=== PATIENT | male | born 1930 | race Caucasian/White ===

== ENCOUNTER → 2016-08-12 | Outpatient (CLI) | payer OTHER | LOC: BMCIMAGING 10:06 | PROVIDERS: ATTEND Neurological Surgery | DX: M99.73 Connective tissue and disc stenosis of intervertebral foramina of lumbar region (principal); S33.120A Subluxation of L2/L3 lumbar vertebra, initial encounter; S33.130A Subluxation of L3/L4 lumbar vertebra, initial encounter ==

== ENCOUNTER 2017-06-04 19:29 | Emergency (ER) | payer OTHER ==
--- NOTE | 2017-06-04 19:38 | EDPHY ---
H & P Time Seen by Provider: 06/04/17 19:37 HPI/ROS: HPI: This is an 86-year-old male presents with Chief Complaint: Left wrist laceration Location: Left wrist Quality: Laceration Duration: Prior to arrival Signs and Symptoms: + bleeding, no radiation, no numbness, no weakness, no tingling, no incontinence, no decreased range of motion, no swelling, no pain Timing: Acute Severity: Mild Context: Patient is right-hand dominant, reports that he was using an [employer] knife to cut open a box when he accidentally slipped and put the tip of the knife into his wrist. He reports that he felt mild pain but quickly resolved. He is more concerned as his blood was "oozing out." He applied a wash rag but is still continued to bleed. He takes baby aspirin daily. Denies any paresthesias/skin color changes/decreased range of motion. Modifying Factors: Direct pressure with transient relief Comment: ROS: see HPI Constitutional: No fever, no chills, no weight loss Eyes: No blurred vision Respiratory: No shortness of breath, no cough Cardiovascular: No chest pain Gastrointestinal: No nausea, no vomiting no diarrhea Genitourinary: No dysuria Extremities: No myalgias Neurologic: No weakness, no numbness Skin: No rashes Hematologic: No bruising, no bleeding MEDICAL/SURGICAL/SOCIAL HISTORY: Medical history: GERD, symptomatic bradycardia, Hernia, HTN Surgical history: Pacemaker, proctectomy Social history: CONSTITUTIONAL: Extremely pleasant elderly white male, awake and alert, no obvious distress HEENT: Atraumatic and normocephalic, PERRL, EOMI. Tympanic membranes clear. Oropharynx clear, no exudate and moist pink mucosa. Airway patent. No lymphadenopathy. No meningismus. Cardiovascular: Normal S1/S2, regular rate, regular rhythm, without murmur rub or gallop. PULMONARY/CHEST: Symmetrical and nontender. Clear to auscultation bilaterally. Good air movement. No accessory muscle usage. ABDOMEN: Soft, nondistended, nontender, no rebound, no guarding, no peritoneal signs, no masses or organomegaly. No CVAT. EXTREMITIES: 2/2 radial pulses, strength 5/5, left WRIST: Extension to 70, flexion to 80, radial deviation to 20 degree, ulnar deviation to 30, no scaphoid tenderness, no tenderness over ulnar styloid, no tenderness over radial styloid, 1/8 cm stab incision noted near the radial styloid; capillary/ ancillary veins present from the radial vein surrounding the laceration. Laceration is simple, superficial, linear. no deformities, no clubbing, no cyanosis or edema. NEUROLOGICAL: no focal neuro deficits. GCS 15. SKIN: Warm and dry, no erythema. no rash. Good capillary refill. Source: Patient, Family () Exam Limitations: No limitations - Medical/Surgical History Hx Asthma: No Hx Chronic Respiratory Disease: No Hx Diabetes: Yes Hx Cardiac Disease: Yes Hx Renal Disease: No Hx Cirrhosis: No Hx Alcoholism: No Hx HIV/AIDS: No Hx Splenectomy or Spleen Trauma: No Other PMH: GERD, PACER-bradycardia, Prostectomy, Hernia, HTN - Social History Smoking Status: Never smoked Constitutional: Initial Vital Signs Temperature (C) 37.0 C 06/04/17 19:49 Heart Rate 89 06/04/17 19:49 Respiratory Rate 18 06/04/17 19:49 Blood Pressure 162/90 H 06/04/17 19:49 O2 Sat (%) 95 06/04/17 19:49 O2 Delivery Mode Room Air Allergies/Adverse Reactions: No Known Allergies Allergy (Unverified 06/04/17 19:51) Home Medications: Medication Instructions Recorded Aspirin [Aspirin 81mg (*)] 81 mg PO DAILY #0 tab 11/18/13 Desloratadine [Clarinex] 5 mg PO HS 11/18/13 Doxycycline Hyclate [Vibramycin 100 mg PO Q3D 11/18/13 100 MG (*)] Famotidine [Pepcid 20 MG (*)] 20 mg PO BID #0 tab 11/18/13 Levothyroxine [Synthroid 50 mcg 50 mcg PO DAILY 11/18/13 (*)] Mometasone 220Mcg Inhaler [Asmanex 1 inh IH BID 11/18/13 Inh (*)] Simvastatin [Zocor 20 mg] 20 mg PO HS 11/18/13 Triamcinolone 0.025% 1 applic TP DAILY 11/18/13 [Triamcinolone 0.025% Cream (RX)] Triamcinolone Acet Nasal [Nasacort 1 inh NASAL DAILY 11/18/13 Aq] oxyCODONE/APAP 5/325 [Percocet 2 tab PO Q6 PRN #0 tab 11/28/13 5/325 (*)] Doxycycline Hyclate 50 mg PO 06/04/17 [place]-3 Fatty Acids/Fish Oil [Fish 1 each PO 06/04/17 Oil 1,000 mg Capsule] Ubidecarenone [Coq-10] 30 mg PO 06/04/17 Medical Decision Making Procedures: Procedure: Laceration repair. Verbal consent was obtained from the patient. The 1/8 cm, simple, superficial laceration on the left wrist radial aspect was anesthetized in the usual fashion using 2 mL of 1% lidocaine with epinephrine The wound was irrigated, draped and explored to its base with a gloved finger. There were no deep structures involved. No tendon injury was identified. The wound was repaired with #1, 6-0 Prolene. Good hemostasis achieved and patient tolerated procedure well. Clean sterile dressing applied. The procedure was performed by myself. ED Course/Re-evaluation: Wound care and laceration repair ordered Tetanus booster given. No active bleeding upon inspection initially. No signs of neurovascular compromise/tenting of skin/compartment syndrome/ extremities and joints examined above and below area of concern and are neurovascularly intact. Xeroform and Cleocin dressing applied. This patient was seen under the supervision of my secondary supervising physician. I evaluated care for this patient independently. Discussed this patient with Dr. Cruz who did not see the patient. Patient's presentation, labs/imaging, treatment and plan of care were discussed with secondary supervising physician. Differential Diagnosis: Differential diagnosis includes but is not limited to arterial injury, venous injury, laceration, contusion, hematoma, ligament injury. - Data Points Medications Given: Discontinued Medications Diphtheria/Tetanus/Acell Pertussis (Boostrix) 0.5 ml IM .ONCE ONE Stop: 06/04/17 20:00 Last Admin: 06/04/17 20:30 Dose: 0.5 ml Departure - Departure Disposition: Home, Routine, Self-Care Clinical Impression: Laceration of left wrist without complication Qualifiers: Encounter type: initial encounter Qualified Code(s): S61.512A - Laceration without foreign body of left wrist, initial encounter Condition: Good Instructions: Care For Your Stitches (ED), Laceration (ED) Additional Instructions: Keep the dressing dry and in place for 48 hours. After 48 hours, you may remove the dressing; wash the site daily with mild soap and water; then pat dry. Take Tylenol 650 mg every 4 hours and/or Ibuprofen 600 mg every 8 hours with food as needed for pain. Please return to the emergency room to have your 1 suture removed in 7 days. Referrals: Ck Buckley MD [Primary Care Provider] - As per Instructions
[2017-06-04 19:51] VITALS: BP 162/90; PULSE 89; RESP 18; TEMP 98.6; O2SAT 95
[2017-06-04] MEDS ORDERED: TDAP ADULT 0.5 ML INJ (BOOSTRIX) IM ONE (19:59)
== END 2017-06-04 20:45 | disposition home or self-care (01) ==
PROC: 0HQDXZZ Repair Right Lower Arm Skin, External Approach (ICD-10-PCS; principal; 2017-06-04)
DX: S61.512A Laceration without foreign body of left wrist, initial encounter (principal); I10 Essential (primary) hypertension; E11.9 Type 2 diabetes mellitus without complications; Z79.82 Long term (current) use of aspirin; Z23 Encounter for immunization; W26.0XXA Contact with knife, initial encounter; Y93.89 Activity, other specified